=== PATIENT | female | born 1990 | race Native Hawaiian/Other Pacific Islander ===

== ENCOUNTER 2017-07-14 10:19 | Inpatient (IN) | payer MEDICAID, OTHER ==
--- NOTE | 2017-07-14 11:43 | OBADHP ---
Datetime: 07/14/2017 11:34 IP Chief Complaint Other: INDUCTION OF LABOR IP Adm Impression Other: Oligohydramnios Admit Comment, IP Provider: chief compalint-oligohyadrmnios HPI 26 y/o at 40.3 wga sent over from [facility] for induction of labor due to oligohydramnios course uncompliacted as per patient; pnc with [facility] PMH denies PSH denies OBGYN HX Social hx denies tobacco,alcohol or illicit drug use Exam see exam section A/P 26 y/o at 40.3gw asent over fro Dr Chowdary office for iduction of labor due to oligohydr amnios.AFO <5 -ADMIT -CERVIDIL -MOnitor closely Pelvic Type - PN: Adequate Extremities - PN: Normal Abdomen - PN: Normal Back - PN: Normal Lungs - PN: Normal Heart - PN: Normal Neurologic - PN: Normal General - PN: Normal Weight - Estimated: 3200 Presentation-Admit: Vertex Contraction Comments Provider: occ Gestation - Est Wks by US: 40.3 IP Hx Assessment: The History has been Reviewed and is Current Vital Signs Provider: Reviewed; Within Normal Limits IP Chief Complaint: Other FHR Category Provider Fetus A: Category I Dilatation, Provider: 0 Genitourinary Exam: Normal DTRs - PN: Normal EGA AdmitDate IP: 40.3 IP Adm Impression: Postterm, intrauterine IP Admit Plan: Discharge home
[2017-07-14 11:44] VITALS: BMI 31.5
[2017-07-14] MEDS ORDERED: Lactated Ringer's 1,000 ML IV SCH (11:45)
[2017-07-14 12:21] LABS: BASO % 0.4 % (0.0-2.0); EOS # 0.1 K/uL (0.0-0.7); EOS % 0.9 % (0.0-4.0); HEMOGLOBIN 12.3 g/dL (11.0-16.0); LYMPH # 1.9 K/uL (1.0-4.3); LYMPH % 19.2 % (20.0-40.0); MEAN CELL VOLUME 90.6 fL (81.0-99.0); MEAN CORPUSCULAR HEMOGLOBIN 31.6 pg (27.0-31.0); MEAN CORPUSCULAR HGB CONC 34.9 g/dL (33.0-37.0); MONO # 0.7 K/uL (0.0-0.8); MONO % 7.3 % (0.0-10.0); NEUT % 72.2 % (50.0-75.0); NRBC % 0.1 % (0.0-2.0); RBC 3.89 Mil/uL (3.80-5.20); RED CELL DISTRIBUTION WIDTH 13.7 % (11.5-14.5); WHITE BLOOD COUNT 9.7 K/uL (4.8-10.8)
[2017-07-14 12:24] LABS: SQUAMOUS EPITHIAL 8 /hpf (0-5); URINE BACTERIA OCC (<OCC); URINE BILIRUBIN NEGATIVE (NEGATIVE); URINE BLOOD NEGATIVE (NEGATIVE); URINE CLARITY Clear (Clear); URINE COLOR Yellow (YELLOW); URINE GLUCOSE (UA) NORMAL (Normal); URINE LEUKOCYTE ESTERASE NEG Leu/uL (Negative); URINE NITRATE NEGATIVE (NEGATIVE); URINE PROTEIN NEGATIVE (NEGATIVE); URINE UROBILINOGEN NORMAL mg/dL (0.2-1.0)
[2017-07-14 12:37] LABS: ALBUMIN 3.4 g/dL (3.5-5.0); ALT/SGPT 26 U/L (9-52); AST/SGOT 28 U/L (14-36); BLOOD UREA NITROGEN 6 mg/dL (7-17); CALCIUM 8.5 mg/dl (8.6-10.4); GFR AFRICAN-AMERICAN > 60; GFR NON-AFRICAN AMERICAN > 60
[2017-07-14 12:42] LABS: ALB/GLOB RATIO 0.9 (1.0-2.1)
--- NOTE | 2017-07-14 14:56 | OBPN ---
Datetime: 07/14/2017 14:51 IP Progress Impression: Reassuring heart rate IP Informed Consent Obtain: Induction of Labor; Risks, Benefits and Alternatives Discussed IP Progress Plan: Continue present management; Cervical Ripening Contraction Comments Provider: irregular Gestation - Est Wks by US: 40.3 Weight - Estimated: 3200 Presentation-Admit: Vertex IP Progress Note Comment: S-Patient comfortable O-VSS afebrile FHT CAT1 Wallis irregular ctx sve closed A/P Patient being induced for oligohyadrmnios.afo 4.1 -cervidil place -monitor closely Vital Signs Provider: Reviewed; Within Normal Limits FHR Category Provider Fetus A: Category I Dilatation, Provider: Consuelo
[2017-07-14] MEDS ORDERED: Oxytocin 30 UNIT 30 UNITS/500 ML BAG IV PRN (21:47)
[2017-07-14] MEDS ORDERED: Nalbuphine 20 mg/ml Inj (1 ml) ONE (22:59)
[2017-07-14] MEDS ORDERED: Nalbuphine 20 mg/ml Inj (1 ml) IVP ONE (23:00)
[2017-07-15] MEDS ORDERED: Bupivacaine HCl/FentaNYL Cit 100 ML EPI ONE (04:53)
--- NOTE | 2017-07-15 06:08 | OBPN ---
Datetime: 07/15/2017 06:03 IP Progress Impression: Reassuring heart rate IP Procedures: Sterile Vag Exam Contraction Comments Provider: irregular FHR - Baseline A Provider: 140 IP Progress Note Comment: S-patient cofmortable with epidutral FHT 140s, mod agusto, Tooc irregular ctx sve /-2 A/P Patient being induce dfor oligohyadrmnios.s/p cervidil -cook catheter placed.utereine bvalloon inflated with 80cc and vaginal balloon with 60cc of salin e -contineu to monitor closely Vital Signs Provider: Reviewed NICHD Variability Prov Fetus A: Moderate 6-25bpm Dilatation, Provider: 1
[2017-07-15] MEDS ORDERED: Oxytocin 20 units in LR 2,000 ML IV ONE (08:29)
[2017-07-15] MEDS ORDERED: Sodium Citrate/Citric Acid 15 ml Sol ONE (08:30)
[2017-07-15] MEDS ORDERED: cefOXitin IV 2 gm in Dextrose 2 GM/50 ML BAG IVPB ONE ×3 (08:30→10:00)
--- NOTE | 2017-07-15 09:40 | OBPN ---
Datetime: 07/15/2017 09:36 IP Progress Impression: Arrest of dilatation/descent IP Informed Consent Obtain: Section Delivery; Risks, Benefits and Alternatives Discussed IP Procedures: Sterile Vag Exam FHR - Baseline A Provider: 150 IP Progress Note Comment: pt was seen at bed side,no ctxs, vb, lof+fm ve /-3 monreal baloon removed primary section called for failed induction r/a/b disc Vital Signs Provider: Reviewed; Within Normal Limits NICHD Accel Fetus A IP Provider: [id number] FHR Category Provider Fetus A: Category I NICHD Variability Prov Fetus A: Moderate 6-25bpm Dilatation, Provider: 1 Effacement, Provider: 50 Station, Provider: -3
[2017-07-15] MEDS ORDERED: Sodium Citrate/Citric Acid 15 ml Sol PO ONE (09:46)
--- NOTE | 2017-07-15 09:49 | PCM.SURG1 ---
Surgeon's Initial Post Op Note - Surgeon's Notes Surgeon: dr diane Finished Stock Inspector: dr schaffer Pre-Operative Diagnosis: 26 yr at 40+weeks failed induction Operative Findings: see the op report Post-Operative Diagnosis: same Operation Performed: primary section Specimen/Specimens Removed: cord blood. cord gas. placente Estimated Blood Loss: EBL {In ML}: 800 Blood Products Given: N/A, Autologous (Cell Saver) Drains Used: No Drains Post-Op Condition: Good Date of Surgery/Procedure: 07/15/17 Time of Surgery/Procedure: 12:00
[2017-07-15] MEDS ORDERED: Morphine 1 mg/ml preservative-free Inj(Duramorph) ONE (09:51)
[2017-07-15] MEDS ORDERED: Phenylephrine 10 mg/ml Inj ONE (09:51)
[2017-07-15] MEDS ORDERED: cefOXitin 2 GM in Dextrose 5% In Water 100 ML IV ONE (10:00)
[2017-07-15] MEDS ORDERED: Oxytocin 10 Units/ml Inj ONE (10:28)
[2017-07-15] MEDS: Simethicone 80 mg Chewtab PO SCH ×3 (14:35→22:05)
[2017-07-16] MEDS: Oxycodone/Acetaminophen 5/325 mg Tab PO PRN ×2 (04:56→13:11)
[2017-07-16] MEDS: Simethicone 80 mg Chewtab PO SCH ×5 (09:31→21:42)
[2017-07-16] MEDS ORDERED: Bisacodyl 5mg EC Tab PO ONE (09:47)
--- NOTE | 2017-07-16 09:53 | OBPPN ---
Datetime: 07/16/2017 09:50 PP Pain Prov: Within normal limits PP Nausea Prov: Denies PP Abdomen/Uterus Prov: Normal PP Lochia Prov: Normal PP CVA Tenderness Prov: Normal PP Comments Phys Exam Prov: fudius below umblics ext mild edema,no hailey dressing clean and dry PP Impression Prov: Normal progression PP Plan Prov: Continue present management PP Progress Note Prov: pt was seen at bed siide, pain under control,no n/v, tolerating det, waiting to void ,min lochisa, flatus- pod #1 s/p c/s liquid deit dc monreal cont post op care cont pain management encourage ambulation Vital Signs Provider PP: Reviewed; Within Normal Limits
[2017-07-16 14:42] LABS: BASO % 0.3 % (0.0-2.0); EOS # 0.1 K/uL (0.0-0.7); EOS % 0.9 % (0.0-4.0); HEMOGLOBIN 11.8 g/dL (11.0-16.0); LYMPH # 2.1 K/uL (1.0-4.3); LYMPH % 14.7 % (20.0-40.0); MEAN CELL VOLUME 90.5 fL (81.0-99.0); MEAN CORPUSCULAR HEMOGLOBIN 31.7 pg (27.0-31.0); MEAN PLATELET VOLUME 9.2 fL (7.2-11.7); MONO % 7.4 % (0.0-10.0); NEUT # 10.8 K/uL (1.8-7.0); NEUT % 76.7 % (50.0-75.0); NRBC % 0.1 % (0.0-2.0); RBC 3.71 Mil/uL (3.80-5.20); RED CELL DISTRIBUTION WIDTH 13.7 % (11.5-14.5)
--- NOTE | 2017-07-17 00:17 | OP ---
PROCEDURE DATE: 07/15/2017 PREOPERATIVE DIAGNOSIS: A 26-year-old 1, para 0 at 40 plus weeks with a failed induction. POSTOPERATIVE DIAGNOSIS: A 26-year-old 1, para 0 at 40 plus weeks with a failed induction. PROCEDURE: Primary cesarian section. SURGEON: To Fish MD. CUSHION GUM APPLICATOR: Dr. Shaikh, who was present throughout the surgery for exposure, retraction, pushing at the time of the delivery. ANESTHESIA: Spinal. ANESTHESIOLOGIST: Dr. Barfield. COMPLICATIONS: None. ESTIMATED BLOOD LOSS: 800 mL. DESCRIPTION OF PROCEDURE: After informed consent was obtained, the patient was brought to the operating room, placed on the table where spinal anesthesia was given. Once the anesthesia was given, the patient was prepped and draped in the normal sterile fashion. About 2 cm above the pubic bone, a skin incision was made with the knife, the subcutaneous cut with a Bovie. The fascia was excised on both the sides using curved Maria scissors. The fascia was from the site of the umbilicus and then at the site of the belly button rectus muscle. The peritoneum was incised and we went into the abdominal cavity, a bladder blade was placed and bladder flap was created. Lower uterine segment incision was made with a knife. It was extended on both sides using curved Maria scissors. Baby delivered in RUBEN position. There was a cord around the body. It was reduced. There was thick meconium. Suction was done. Cord was clamped and cut. Baby was handed to the awaiting health policy analyst. Cord gas was taken and sent to the Pathology. Placenta delivered manually and sent to the Pathology. Uterus was exteriorized and cleared of all clots and debris. The uterine incision was closed using #1 Vicryl in running interlocking fashion, second layer was closed with the same stitch. Uterus, tubes, and ovaries looked normal. Gutters were cleared of all the clots. Uterus was returned back to the abdominal cavity. The uterine incision looked hemostatic. Then the peritoneum was closed with 2-0 Vicryl in nonlocking fashion. Muscles were closed with 2-0 Vicryl in a nonlocking fashion. Subcutaneous tissue was closed interrupted fashion. Skin was closed using freddie. The patient tolerated the procedure well. Lap, sponge, and instrument counts were correct x2. To Fish MD [facility] # [id number]
[2017-07-17] MEDS: Oxycodone/Acetaminophen 5/325 mg Tab PO PRN (01:40)
[2017-07-17] MEDS: Simethicone 80 mg Chewtab PO SCH ×4 (09:22→21:49)
[2017-07-17 10:10] LABS: HEMOGLOBIN 11.4 g/dL (11.0-16.0); MEAN CORPUSCULAR HEMOGLOBIN 30.2 pg (27.0-31.0); MEAN CORPUSCULAR HGB CONC 32.9 g/dL (33.0-37.0); MEAN PLATELET VOLUME 8.8 fL (7.2-11.7); RBC 3.77 Mil/uL (3.80-5.20); RED CELL DISTRIBUTION WIDTH 14.1 % (11.5-14.5); WHITE BLOOD COUNT 11.7 K/uL (4.8-10.8)
--- NOTE | 2017-07-17 14:50 | OBPPN ---
Datetime: 07/17/2017 14:36 PP Pain Prov: Within normal limits PP Nausea Prov: Denies PP Flatus Prov: Yes PP BM Prov: Yes PP Breasts Prov: Normal PP Heart Prov: Normal PP Lungs Prov: Normal PP Abdomen/Uterus Prov: Normal PP Lochia Prov: Normal PP Vulva/Perineum Prov: Not Done PP CVA Tenderness Prov: Normal PP Extremities Prov: Normal PP C/S Incision Prov: Normal PP Progress Prov: Normal PP Comments Phys Exam Prov: Abdomen: Soft; non distended. (+) BS. Fundus approrpirately tender, firm , mobile, 1 FB below umbilcius. Incision with freddie - clean, dry, intact. Extremities: 2+ pedal edema, bilaterally; no calf tenderness All other systems reviewed and are negative PP Impression Prov: Normal progression PP Plan Prov: Continue present management PP Progress Note Prov: Patient received in room, attending to infant, ambulating, voiding without di fficulty. Bassam nausea, vomiting. (+) flatus; (+) BM. Currently deciding to bottle feed as " i do n ot have much milk" P.E.: as above. WD in NAD. Awake, alert, oriented to time, person and place. Pleasant and steve ative - POD#1 H/H 11.8/33.6; POD#2 H/H 11.4/34. Rh (+) Assessment: POD#2, 26 yo, , S/P primary LTCS for failed IOL. Afebrile, vital signs stable. Returning GI and functions. Clinically stable. Plan: 1) Continue present management 2) Anticipate discharge home 07/18/17 Vital Signs Provider PP: Reviewed
[2017-07-18] MEDS: Simethicone 80 mg Chewtab PO SCH (09:15)
[2017-07-18] MEDS: Oxycodone/Acetaminophen 5/325 mg Tab PO PRN (09:16)
[2017-07-18 10:10] VITALS: BP 120/85; RESP 18; TEMP 97.4; O2SAT 100
--- NOTE | 2017-07-18 11:21 | OBDCSUM ---
Datetime: 07/18/2017 11:17 Discharged to, Provider: Home Follow up at, Provider: clinic Disch Instr Diet: Regular Discharge Diagnosis, Provider: Postterm Discharge Time: 07/18/2017 11:17 Follow up in weeks, Provider: 1 week Discharge Comment, Provider: go to er if you have feevr, severe pain, heavy bleeidng or any discharg e or redness form incision
--- NOTE | 2017-07-18 11:21 | OBPPN ---
Datetime: 07/18/2017 10:58 PP Pain Prov: Within normal limits PP Nausea Prov: Denies PP Flatus Prov: Yes PP Heart Prov: Normal PP Lungs Prov: Normal PP Abdomen/Uterus Prov: Normal PP Lochia Prov: Normal PP CVA Tenderness Prov: Normal PP Extremities Prov: Normal PP C/S Incision Prov: Normal PP Progress Prov: Not Applicable PP Impression Prov: Normal progression PP Plan Prov: Discharge PP Progress Note Prov: S-Patient states that her pain is well controlled.tolerating diet.voiding wit hout difficult.state sthat she feels pain in calf muscles after ambulating O-VS Afebrile Fundus firm and below umbilcius extremities no calf tenderness Incision clean, dry and intact A/P Patient s/p csection pod 3 -doppler of lower extremities. -if neg would discharge later in the day Vital Signs Provider PP: Reviewed; Within Normal Limits
--- NOTE | 2017-07-18 17:26 | OBDCSUM ---
Datetime: 07/18/2017 11:25 Discharged to, Provider: Home Follow up at, Provider: Dr. Adri Hernandez Disch Instr Activity: Normal activity Disch Instr Diet: Regular Discharge Diet restrict Prov: none Discharge Time: 07/18/2017 13:00 Follow up in weeks, Provider: July 26, 2017 for removal of freddie. Disch Referrals: None Disch Activity Restrictions: No exercising; No lifting; No driving; Minimize walking; Minimize stair -climbing; No sexual activity; Nothing in vagina - [place], tampons, douche Discharge Comment, Provider: go to er if you have fever, pain, , heavy bleeidng, any redness or disc harge from skin incision Datetime: 07/18/2017 11:17 Discharged to, Provider: Home Follow up at, Provider: clinic Disch Instr Diet: Regular Discharge Diagnosis, Provider: Postterm Discharge Time: 07/18/2017 11:17 Follow up in weeks, Provider: 1 week Discharge Comment, Provider: go to er if you have feevr, severe pain, heavy bleeidng or any discharg e or redness form incision
[2017-07-18 20:46] VITALS: PULSE 108
--- NOTE | 2017-07-19 12:46 | VASCLAB ---
PROCEDURE: Lower Extremity Venous Duplex Exam. HISTORY: Bilateral calf tenderness, r/o DVT PRIORS: None. TECHNIQUE: Bilateral common femoral, femoral, popliteal and posterior tibial, peroneal and great saphenous veins were evaluated. Flow was assessed with color Doppler, compressibility, assessment of phasic flow and augmentation response. Report prepared by FRANKY Denise FINDINGS: RIGHT: 1. Common Femoral Vein: 1.1. Compressibility - Fully compressible: Thrombus - None : Flow - Phasic: Augmentation -Normal: Reflux - None. 2. Femoral Vein: 2.1. Compressibility - Fully compressible: Thrombus - None : Flow - Phasic: Augmentation -Normal: Reflux - None. 3. Popliteal Vein: 3.1. Compressibility - Fully compressible: Thrombus - None : Flow - Phasic: Augmentation -Normal: Reflux - None. 4. Posterior Tibial Vein: 4.1. Compressibility - Fully compressible: Thrombus - None: Flow - Phasic: Augmentation -Normal: Reflux - None. 5. Peroneal Vein: 5.1. Compressibility - Fully compressible: Thrombus - None: Flow - Phasic: Augmentation -Normal: Reflux - None. 6. Great Saphenous Vein: 6.1. Compressibility - Fully compressible: Thrombus - None: Flow - Phasic: Augmentation - Normal: Reflux - None. LEFT: 1. Common Femoral Vein: 1.1. Compressibility - Fully compressible: Thrombus - None: Flow - Phasic: Augmentation -Normal: Reflux - None. 2. Femoral Vein: 2.1. Compressibility - Fully compressible: Thrombus - None: Flow - Phasic: Augmentation -Normal: Reflux - None. 3. Popliteal Vein: 3.1. Compressibility - Fully compressible: Thrombus - None : Flow - Phasic: Augmentation -Normal: Reflux - None. 4. Posterior Tibial Vein: 4.1. Compressibility - Fully compressible: Thrombus - None: Flow - Phasic: Augmentation -Normal: Reflux - None. 5. Peroneal Vein: 5.1. Compressibility - Fully compressible: Thrombus - None: Flow - Phasic: Augmentation -Normal: Reflux - None. 6. Great Saphenous Vein: 6.1. Compressibility - Fully compressible: Thrombus - None: Flow - Phasic: Augmentation - Normal: Reflux - None. OTHER FINDINGS: Right: None significant. Left: None significant. IMPRESSION: Right: No evidence of deep or superficial vein thrombosis of the right lower extremity. Normal valve function noted of the right side. Left: No evidence of deep or superficial vein thrombosis of the left lower extremity. Normal valve function noted of the left side.
== END 2017-07-18 13:00 | disposition home or self-care (01) | DRG 371 ==
LOC: C.EROB 10:19 → C.4D 11:53 → C.4M 07-15 13:15
PROVIDERS: ADMIT Student in an Organized Health Care Education/Training Program; ATTEND Student in an Organized Health Care Education/Training Program
PROC: 3E0P7VZ Introduction of Hormone into Female Reproductive, Via Natural or Artificial Opening (ICD-10-PCS; 2017-07-14)
PROC: 10D00Z1 Extraction of Products of Conception, Low, Open Approach (ICD-10-PCS; principal; 2017-07-15)
DX: O41.03X0 Oligohydramnios, third trimester, not applicable or unspecified (principal); O61.9 Failed induction of labor, unspecified; O48.0 Post-term pregnancy; Z37.0 Single live birth; O62.0 Primary inadequate contractions; Z3A.40 40 weeks gestation of pregnancy